=== PATIENT | male | born 1970 | race Caucasian/White ===

== ENCOUNTER 2016-05-29 08:49 | Emergency (ER) | payer MEDICAID, OTHER ==
[~2016-05-29] VITALS: Ht 188 cm; Wt 93.6 kg
--- NOTE | 2016-05-29 09:06 | ED.REPORT ---
HPI-General Illness Date of Service May 29, 2016 ED Provider: Lalo Hernandez MD Pt is a homeless 46 year old male with a history of schizoaffective disorder who presents to the ED via police for an evaluation for fit to nursing home. He reports that he has been having migraines, and the only way that he has been able to alleviate this pain is by hitting himself in his head. Pt reports that he has been off of his medications for a while, and has been having increased audio and visual hallucinations. He reports that in the past he has taken Seroquel, Haldol, Trazodone, and "mood stabilizers". Pt states that these medications have helped him in the past. He was seen in [place] assaulting himself, and the police were contacted. He is a difficult historian due to his altered mental status. Pt denies any suicidal or homicidal ideation, he reports a prior history of substance abuse, but denies any recent usage. Nursing Notes Stated Complaint: EVAL Nursing Notes Reviewed: Yes Allergies: Coded Allergies: No Known Allergies (Unverified , 05/29/16) General Time Seen by MD: 09:04 Chief Complaint Medical clearance Hx Obtained From: Patient, Police Arrived By: Police Sudden in Onset?: No Severity: Current: No pain currently Severity: Maximum: No pain Similar Sx Previous: Yes Past Medical History Past Medical History Schizoaffective disorder Ambulatory Status Independent Review of Systems Full Review of Systems Constitutional: Denies: Chills, Fever, Malaise Respiratory: Denies: Non-productive cough, Shortness of breath, Wheezing Cardiovascular: Denies: Chest pain, Syncope GI: Denies: Abdominal pain, Constipation, Diarrhea, Nausea, Vomiting Male: Denies Dysuria, Denies Flank pain, Denies Urinary frequency, Denies Urinary urgency Skin: Denies Diaphoresis, Denies Rash Neurologic: Reports: Headache, Denies: Change LOC, Dizziness, Syncope, Weakness Psychiatric: Reports: Agitation, Hallucinations, auditory, Hallucinations, visual, Denies: Homicidal ideation, Suicidal ideation Complete sys rev & neg: except as marked. Physical Exam Vital Signs Vital Signs Date Time Temp Pulse Resp B/P Pulse Ox O2 Delivery O2 Flow Rate FiO2 05/29/16 23:34 36.7 71 110/61 98 Room Air 05/29/16 16:55 73 14 110/67 98 Room Air 05/29/16 13:12 68 16 115/69 100 Room Air 05/29/16 09:38 78 18 136/95 97 Room Air 05/29/16 09:08 36.6 82 18 143/101 100 Room Air Initial VS: Reviewed, Vital signs normal Head / Eyes: Atraumatic, Normocephalic, PERRL ENT: Mucous membranes moist, Conjunctiva normal, No scleral icterus Neck: Supple, Non-tender, Full range of motion Respiratory: Breath sounds normal, Clear to auscultation, No respiratory distress Cardiovascular: Regular rate & rhythm, Heart sounds normal, Intact distal pulses Abdomen / GI: Soft, Non-tender, No guarding, No rebound, No distention Skin: Warm, Dry, No cyanosis Psychiatric: Not suicidal, Not homicidal Responding to externaml stimuli Aggitated Rapid presssured speech Says there are "demons in his brain" Interpretation & Diagnostics Lab Results Interpretation Result Diagram: 05/29/16 1155 05/29/16 1155 Test 05/29/16 11:55 White Blood Count 4.7th/mm3 (3.8-10.1) Red Blood Count 4.74mil/mm3 (4.40-5.80) Hemoglobin 14.3g/dL (13.8-17.2) Hematocrit 41.4% (41.0-50.0) Mean Corpuscular Volume 87.3fL (81-100) Mean Corpuscular Hemoglobin 30.2pg (27.0-35.0) Mean Corpuscular Hemoglobin Concent 34.5% (32.0-37.0) Red Cell Distribution Width 13.9% (12.3-15.4) Platelet Count 332bil/L (150-400) Neutrophils (%) (Auto) 54.2% (40-74) Lymphocytes (%) (Auto) 28.3% (14-46) Monocytes (%) (Auto) 14.6% (4-12) Eosinophils (%) (Auto) 2.1% (0-5) Basophils (%) (Auto) 0.4% (0-3) Sodium Level 137mEq/L (134-144) Potassium Level 4.1mEq/L (3.5-5.2) Chloride Level 103mEq/L (97-108) Carbon Dioxide Level 23mmol/L (18-29) Blood Urea Nitrogen 15mg/dL (6-24) Creatinine 0.84mg/dL (0.76-1.27) Estimat Glomerular Filtration Rate 106mL/min (>59) Glucose Level 115mg/dL (60-99) Calcium Level 8.7mg/dL (8.5-10.1) Total Bilirubin 0.3mg/dL (0.0-1.2) Aspartate Amino Transf (AST/SGOT) 29U/L (0-50) Alanine Aminotransferase (ALT/SGPT) 11U/L (0-44) Alkaline Phosphatase 83U/L (25-150) Total Protein 7.6g/dL (6.4-8.4) Albumin 3.5g/dL (3.4-5.0) Thyroid Stimulating Hormone (TSH) 3.100uIU/mL (0.450-4.500) Hold Valdez Top Tube Received (Received) Lab Results Interpretation: CBC is normal CMP is normal Alcohol is negative U tox is negative Re-Eval/Medical Decision Med Decision/Clinical Course In summary, the patient is a 46-year-old male with self-reported history of schizoaffective disorder and previous polysubstance abuse who presents the emergency department by police due to agitation and disorganized behavior. Upon arrival, the patient is relatively calm to somewhat agitated stating that he has demons and has had and that he is been striking himself in the face in order to distract himself from the demons. He requests Haldol or Zyprexa, we administered 5 mg Zydis ROXANA but he became increasingly agitated and wandering out into the halls and making threatening motion towards her nursing staff. The patient was assisted back to his room at which time we administered 5 mg of Haldol, 2 mg of Ativan and 25 mg of Benadryl with good effect. He was placed on continuous monitoring. We ordered a breathalyzer, urine drug screen and basic laboratory studies. The patient was seen and evaluated bu out emergency department social work nurse who felt that he would likely benefit from hospitalization to be restarted on his psychiatric medications. I considered organic causes of the patient's presentation and found no evidence thereof. Of note there is no sign of significant head trauma and I did not feel that neuroimaging was indicated. After receiving indications the patient rested calmly and remained stable for the remainder of my shift. He was signed out to the oncoming physician awaiting [facility] evaluation. Patient was turned over to me at change of shift pending a DCR evaluation. Patient was seen by the DCR and is being detained. A bed search for options of placement is underway. She started to begin to mildly escalate after the DCR evaluation, so ordered a dose of Zyprexa by mouth. The patient initially refused this, and demanded Seroquel-so I wrote for dose Seroquel, and then the patient changed her mind and willingly took the Zyprexa so the Seroquel was not administered. -Kyle Haas The patient has been accepted for admission at [facility] at 9am -Kyle Haas At approximately oh 40 5 AM, patient rapidly escalated. Consult to the door and had be closed it and started pounding against the oneal finger properly. A code saturnino was called, and with a show of force the patient backed down cooperate with administration of an IM dose of Haldol, Benadryl, and lorazepam-the medication, that worked well when he first arrived I have also ordered 7am dose of Zyprexa. - Kyle Haas Source of Hx: Old records Time of Eval: 10:36 Re-Evaluation/Progress Note: Pt became extremely aggitated, reporting that no one was paying attention to him, and he would like his medication. He then fled from his room and began walking around the emergency department. A code iesha was called. Time of Eval: 22:00 Patient Status: Condition improved Re-Evaluation/Progress Note: Pt seen by DCR, detained. Has accepted oral medication Differential Diagnosis: Negative: COPD exacerbation, Fracture, G-tube repair/ replacement, Neutropenia, Pneumonia, Syncope Counseled Regarding: Diagnosis, Lab results, When/why to return to ED Discharge & Departure Primary Impression: Schizophrenia Schizophrenia type: other Qualified Code: F20.89 - Other schizophrenia Additional Impressions: Agitation Combative behavior Polysubstance abuse Disposition: Home Discharge Condition All VS Reviewed: Yes Condition: Stable Referrals: NOPCP (PCP) Crit Care Except Billable Proc Time Spent: 75-104 minutes Services Performed: Patient management by me, Time spent at bedside, Reviewing test results, Discussing patient care, Documentation in record Critical Care Notes: Management patient's acute agitation and combative behavior Russellibneena Attestation Portions of this note were transcribed by Alla Arrieta. I, Dr. Hernandez personally performed the history, physical exam and medical decision-making; I reviewed and confirmed the accuracy of the information in the transcribed note. Signed by: Pramod George, 05/29/2016 [Time]. Re-Eval/Medical Decision Med Decision/Clinical Course Patient quiet overnight, scheduled for repeat medicines this morning at 0700 Admission arranged for [facility] for 9 AM. Lalo Hernandez MD May 29, 2016 09:06 GORDON ARRIETA May 29, 2016 09:23 Dale Haas MD May 29, 2016 21:42 Roger Brownlee MD May 30, 2016 05:22
[2016-05-29 09:08] VITALS: BP 143/101; PULSE 82; RESP 18; O2SAT 100
[2016-05-29 09:38] VITALS: BP 136/95; PULSE 78; RESP 18; O2SAT 97
[2016-05-29] MEDS ORDERED: OLANZapine Zydis ODT 5 mg Tablet PO SCH (09:45)
[2016-05-29] MEDS ORDERED: Haloperidol 5 mg/mL Inj IM PRN (10:25)
[2016-05-29 12:19] LABS: BASOPHILS % (AUTO) 0.4 % (0-3); EOSINOPHILS % (AUTO) 2.1 % (0-5); MONOCYTES % (AUTO) 14.6 % (4-12); Mean Corpuscular Hemoglobin 30.2 pg (27.0-35.0); Mean Corpuscular Volume 87.3 fL (81-100); NEUTROPHILS % (AUTO) 54.2 % (40-74); Platelet Count 332 bil/L (150-400)
[2016-05-29 13:12] VITALS: BP 115/69; PULSE 68; RESP 16; O2SAT 100
[2016-05-29 16:55] VITALS: BP 110/67; PULSE 73; RESP 14; O2SAT 98
[2016-05-29] MEDS ORDERED: OLANZapine Zydis ODT 5 mg Tablet PO ONE (20:50)
[2016-05-29 23:34] VITALS: BP 110/61; PULSE 71; O2SAT 98
[2016-05-30] MEDS ORDERED: Haloperidol 5 mg/mL Inj IM ONE (00:45)
[2016-05-30] MEDS ORDERED: OLANZapine Zydis ODT 5 mg Tablet PO ONE (07:00)
== END 2016-05-30 08:36 | disposition other institution (70) ==
LOC: SED 08:50
DX: F20.89 Other schizophrenia (principal); F91.9 Conduct disorder, unspecified; R45.1 Restlessness and agitation; F19.10 Other psychoactive substance abuse, uncomplicated; Z59.0 Homelessness
CPT/HCPCS: 36415; 80053; 81002; 82075; 84443; 85025; 96372; 99291; 99292; J1200; J1630; J2060